=== PATIENT | female | born 1975 ===

== ENCOUNTER 2020-02-07 10:44 | Emergency (ER) | payer MEDICAID, OTHER ==
[~2020-02-07] VITALS: Ht 172.7 cm; Wt 100.0 kg
[2020-02-07] MEDS ORDERED: HALOPERIDOL 5 MG/ML ONE (11:01)
[2020-02-07] MEDS ORDERED: LORazepam 2 MG/ML, 1ML ONE (11:10)
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
[2020-02-07] MEDS ORDERED: PLEASE ENTER ALLERGIES MC SCH (11:30)
[2020-02-07] MEDS ORDERED: HALOPERIDOL 5 MG/ML IM ONE (11:30)
[2020-02-07] MEDS ORDERED: LORazepam 2 MG/ML, 1ML IM ONE (11:30)
[2020-02-07 11:50] LABS: BASOPHILS # (AUTO) 0.03 x10^3/uL (0-0.1); BASOPHILS % (AUTO) 0 % (0-1); EOSINOPHILS # (AUTO) 0.01 x10^3/uL (0-0.4); EOSINOPHILS % (AUTO) 0 % (1-7); LYMPHOCYTES # (AUTO) 0.92 x10^3/uL (1-3.4); LYMPHOCYTES % (AUTO) 9 % (22-44); MD NO; MEAN CORPUSCULAR HEMOGLOBIN 29.3 pg (27.0-34.8); MEAN CORPUSCULAR HGB CONC 33.2 g/dL (32.4-35.8); MEAN CORPUSCULAR VOLUME 88.1 fL (80-100); MEAN PLATELET VOLUME 8.9 fL (7.4-10.4); MONOCYTES # (AUTO) 0.37 x10^3/uL (0.2-0.8); MONOCYTES % (AUTO) 4 % (2-9); NEUTROPHILS # (AUTO) 8.65 x10^3/uL (1.8-6.8); NEUTROPHILS % (AUTO) 87 % (42-75); PLATELET COUNT 330 x10^3/uL (130-400); RED BLOOD COUNT 4.88 x10^6/uL (3.82-5.3); RED CELL DISTRIBUTION WIDTH 13.8 % (9.6-15.2)
--- NOTE | 2020-02-07 11:52 | NUR ---
PT FALLING ASLEEP NOW AFTER RECEIVING MEDICATION. PT REMAINS IN FOUR-POINT RESTRAINTS AND REMAINS SAFE. WARM BLANKET PROVIDED. PT ON CONTINUOUS SPO2 MONITOR AND CONTINUOUS [id number] OBSERVATION BY SITTER FOR SAFETY.
[2020-02-07 12:02] LABS: ALBUMIN 4.2 g/dL (3.4-5.0); ANION GAP 21 mmol/L (5-15); CALCIUM 9.2 mg/dL (8.5-10.1); CHLORIDE 107 mmol/L (98-107)
[2020-02-07 12:06] LABS: ALANINE AMINOTRANSFERASE 41 U/L (12-78); ALKALINE PHOSPHATASE 99 U/L (45-117); BILIRUBIN,TOTAL 0.8 mg/dL (0.2-1.0); CREATININE 1.65 mg/dL (0.55-1.02); TOTAL PROTEIN 7.8 g/dL (6.4-8.2)
[2020-02-07 12:07] LABS: SALICYLATE LEVEL < 1.7 mg/dL (2.8-20.0)
[2020-02-07 12:11] LABS: FREE T4 (FREE THYROXINE) 1.56 ng/dL (0.76-1.46)
--- NOTE | 2020-02-07 12:35 | NUR ---
RESTRAINTS REMOVED. PATIENT AGREES TO BE COOPERATIVE. SHE IS DROWSY AT THIS TIME BUT CAN CARRY A CONVERSATION WITH STIMULATION.
--- NOTE | 2020-02-07 12:58 | NUR ---
BREAK RN: PT SLEEPING IN GURNEY WITH SITTER AT DOORWAY, PT ON MONITOR, VSS. NO NEEDS AT THIS TIME. EDY REAGANN TO EVAL PT WHEN AWAKE AND COOPERATIVE.
[2020-02-07] MEDS ORDERED: RISP3TAB3 PO (13:58)
--- NOTE | 2020-02-07 14:00 | NUR ---
GEORGE PASCUAL, STOPPED BY TO CHECK ON PATIENT. HE HAS NO CELL PHONE AT THIS TIME BUT IS STAYING AT [facility] IN ROOM 1044.
[2020-02-07] MEDS ORDERED: HALOPERIDOL 5 MG/ML IM PRN (17:00)
[2020-02-07] MEDS ORDERED: DIPHENHYDRAMINE 50 MG CAPSULE PO PRN (17:00)
[2020-02-07] MEDS ORDERED: HALOPERIDOL 5 MG TABLET PO PRN (17:00)
[2020-02-07] MEDS ORDERED: DIPHENHYDRAMINE 50 MG/ML, 1ML IM PRN (17:00)
[2020-02-07] MEDS ORDERED: LORazepam 2 MG/ML, 1ML IM PRN (17:00)
--- NOTE | 2020-02-07 17:14 | NUR ---
PATIENT WOKE UP AND IS REQUESTING TO BE DISCHARGED TO HER [facility]. NOTIFIED. DR. WRAY. PSYCH CAD APPLICATION SUPPORT SPECIALIST, EDY HAS GONE HOME FOR THE DAY AND WE WILL WAIT FOR HER TO BE RE-EVALUATED TOMMOROW BY HIM, DUE TO THE SEVERITY OF HER PSYCHOSIS EARLIER TODAY.
--- NOTE | 2020-02-07 17:56 | NUR ---
DINNER SERVED TO PATIENT. UPDATED PATIENT ON PLAN OF CARE AND THAT SHE WILL STAY OVERNIGHT TO BE RE-EVALUATED BY THE MENTAL HEALTH AIRCRAFT INSTRUMENT REPAIRER TOMORROW. PT EATING DINNER AND WATCHING TV, IS CALM AND COOPERATIVE AND ORIENTED.
--- NOTE | 2020-02-07 18:30 | NUR ---
MCKAYLA VAZQUEZ, AT BEDSIDE. PT REMAINS CALM AND COOPERATIVE AND REMAINS UNDER CONSTANT SUPERVISION OF SITTER AND REMAINS SAFE.
--- NOTE | 2020-02-07 19:15 | NUR ---
REPORT RECIEVED FROM AYDEN DOYLE AT 1919. URINE COLLECTED FROM PATIENT, EXPLAINED POC AND PATIENT AGREEABLE AND UNDERSTANDING. PATIENT PLACED IN HOSPITAL BED, VITALS TAKEN. (MCKAYLA) LEFT AND STATES WILL BE BACK ([phone]). ROOM SECURED, NO BELONGINGS AT BEDSIDE. SITTER IN LINE OF SIGHT OF PATIENT.
[2020-02-07 19:28] LABS: AMPHETAMINE SCREEN, URINE Negative (Negative); BARBITURATE SCREEN, URINE Negative (Negative); BENZODIAZEPINE SCREEN, URINE Negative (Negative); CANNABINOID SCREEN, URINE Positive (Negative); COCAINE SCREEN, URINE Negative (Negative); METHADONE SCREEN, URINE Negative (Negative); OPIATE SCREEN, URINE Negative (Negative)
[2020-02-07] MEDS ORDERED: RISPERIDONE 2 MG TABLET ONE (20:07)
[2020-02-07] MEDS: RISPERIDONE 1 MG TABLET PO SCH (20:38)
--- NOTE | 2020-02-07 20:43 | NUR ---
PATIENT MEDICATED PER MAR, STATES NO NEEDS AT THIS TIME, IN LINE OF SIGHT WITH GARCIATER.
--- NOTE | 2020-02-07 21:45 | NUR ---
PATIENT SLEEPING IN BED, RESPIRATIONS EVEN, IN LINE OF SIGHT OF SITTER. CAME BACK EARLER AND STATED HE WILL GO AND GET PT'S INSURANCE INFORMATION.
--- NOTE | 2020-02-07 22:29 | NUR ---
S/O (MCKAYLA) STATED HE WAS UNABLE TO GET INSURANCE INFORMATION AT THIS TIME. STATES HE WILL GET INFORMATION FAXED OVER IN THE MORNING.
--- NOTE | 2020-02-07 23:17 | NUR ---
PT. HAS BEEN COOPERATIVE WITH STAFF THROUGHOUT SHIFT. WHEN PT. S/O AT NO ISSUES NOTED AND PT. SEEMS TO BE MORE CALM AND PLEASANT WITH S/O HERE. NO ISSUES NOTED. PT. S/O AND PT. WERE STAYING IN [facility] AND PT. INSURANCE CARD/SOCIAL SECURITY CARD AND ALL OTHER BELONGINGS ARE IN SAID ROOM; HE STATES HE IS UNABLE TO GET ACCESS INTO ROOM TO GET HER BELONGINGS. PT. AND S/O REQUESTING THIS RN TO CONTACT [facility] TO DISCUSS PT. BEING ADMIT IN HOSPITAL AND REQUEST FOR S/O ACCESS. THIS RN SPOKE WITH RECEIVING AND PROCESSING SUPERVISOR AT [facility] AND THEY STATE THERE IS NO WAY TO ALLOW S/O ACCESS TO ROOM WITHOUT HIM BEING ON THE REGISTRATION R/T " MULTIPLE CALLS TO SECURITY LAST NIGHT AND THE ROOM BEING IN TOTAL DISARRAY UPON SECURITY ARRIVAL." THIS RN IN TO ASK PT. IF SHE FEELS SAFE AT HOME; PT. STATES "I ONLY WANT TO TALK A DR. ABOUT THE QUESTIONS YOU'RE ASKING, I DON'T WANT TO ANSWER THEM FOR YOU." EMAIL MARKETING INTERN CONSULT ORDERED FOR AM FOR THESE REASONS.
[2020-02-07] MEDS ORDERED: DIPHENHYDRAMINE 50 MG CAPSULE ONE (23:25)
--- NOTE | 2020-02-08 02:43 | NUR ---
PATIENT AMBULATED TO RESTROOM, IN LINE OF SIGHT WITH SITTER, NO S/S OF DISTRESS
[2020-02-08] MEDS ORDERED: LORazepam 1MG TABLET ONE (05:24)
--- NOTE | 2020-02-08 05:37 | NUR ---
PT CONTINUOUSLY WANDERING OUT OF ROOM, AND WANTING TO USE PHONE. THIS RN ALLOWED PT TO USE PHONE ONCE AND LIMITS WERE SET. THIS RN TOLD PATIENT THAT SHE SHOULD TAKE MEDICATION TO HELP WITH ANXIETY. THIS RN WENT TO MEDICATE PT PER EMAR. PT THEN STATED SHE WANTS ALL HER PAPERWORK, AND HER [facility]'S PHONE NUMBER BEFORE TAKING PILLS. THIS RN EXPLAINED POC TO PATIENT AGAIN, AND SHE AGREED TO TAKE PILLS. AFTER TAKING PILLS THIS RN REQUESTED TO LOOK IN PATIENT'S MOUTH TO MAKE SURE PILLS WERE CONSUMED. PT THEN KEPT OPENING AND CLOSING MOUTH VERY QUICKLY. AFTER 5 ATTEMPT TO LOOK IN MOUTH PT WAS AGREEABLE. WHEN THIS RN WENT BACK TO ROOM, THE SITTER STATED PT WAS SPITTING IN CUP. THIS RN LOOKED IN CUP AND PATIENT STOOD UP QUICKLY STATING SHE WANTS HER CUPS BACK, AND WAS VISIBLY UPSET. THIS RN DID NOT VISUALIZE ANYTHING IN CUP. PT WENT BACK TO BED. SITTER REMAINS IN LINE OF SIGHT
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
--- NOTE | 2020-02-08 07:08 | NUR ---
RECEIVED REPORT FROM BLAKE HERNANDEZ RN'S. PT RESTING IN BED. NADN. SITTER REMAINS AT BEDSIDE. ROOM REMAINS SECURE.
--- NOTE | 2020-02-08 08:23 | NUR ---
PT SLEEPING IN BED. NADN. SITTER REMAINS AT BEDSIDE. ROOM REMAINS SECURE.
[2020-02-08] MEDS ORDERED: RISPERIDONE 2 MG TABLET ONE (08:33)
[2020-02-08] MEDS: RISPERIDONE 1 MG TABLET PO SCH (08:40)
--- NOTE | 2020-02-08 08:41 | NUR ---
PT RESTING IN BED. KRISTA. VSS. PROVIDED W/SI BREAKFAST TRAY. SITTER REMAINS AT BEDSIDE. ROOM REMAINS SECURE.
--- NOTE | 2020-02-08 10:10 | NUR ---
REPORT GIVEN TO AYDEN JUAN.
--- NOTE | 2020-02-08 10:11 | NUR ---
PT REPORT FROM AYDEN REYNOLDS. PT CARE TO BE ASSUMED. SITTER AT DOORWAY. PER GAIL, 1) PT WAS GIVEN LIMIT OF 2 PHONE CALLS/DAY AND HAS USED ONE THIS MORNING, 2) PT HAS PIECE OF PAPER W/ BOYFRIEND'S PHONE NUMBER, 3) PT HAS HER SHOES BUT LACES WERE REMOVED.
--- NOTE | 2020-02-08 10:41 | NUR ---
PT AMBULATORY TO & FROM [facility] W/OUT INCIDENT. SITTER OUTSIDE ROOM
--- NOTE | 2020-02-08 11:18 | NUR ---
PT REQUESTED RN. THIS RN TO ROOM. PT ASKING FOR NAME OF "PSYCH DOCTOR WHO WAS TALKING TO ME"; INFORMED PT THAT SHE WAS SPEAKING WITH NEENA SNOW. PT REFUSING TO ANSWER RN QUESTIONS; STATES "I DON'T WANT TO TALK TO YOU". SITTER OUTSIDE ROOM. AWAITING SIG OTHER'S RETURN FOR PT DC.
--- NOTE | 2020-02-08 11:24 | NUR ---
Az lakhani in [facility] - 02/08/20 at 1126 by SOLOMON PT RESTING QUIETLY ON BED; REFUSING TO ANSWER QUESTIONS. SITTER OUTSIDE DOOR.
--- NOTE | 2020-02-08 11:26 | NUR ---
CORAL (SIG OTHER) HERE FOR PT
[2020-02-08 12:06] VITALS: BP 117/98
== END 2020-02-08 12:08 | disposition home or self-care (01) ==
LOC: EDBD 10:44 → ED 21:04
DX: F22 Delusional disorders (principal); Z91.14 Patient's other noncompliance with medication regimen
CPT/HCPCS: 36415; 80053; 80307; 84439; 84443; 84703; 85025; 96372; 99285; J1630; J2060; 99284